=== PATIENT | female | born 1990 | race African-American/Black ===

== ENCOUNTER 2024-03-24 18:37 | Emergency (ER) | payer MEDICAID, OTHER ==
[~2024-03-24] VITALS: Ht 162.6 cm; Wt 136.3 kg
[2024-03-24 18:37] VITALS: BP 126/69; PULSE 84; RESP 14; O2SAT 99
[2024-03-24] MEDS ORDERED: DexAMETHasone SOD PHOS 10MG/1ML VIAL INJ IM ONE (22:15)
[2024-03-24] MEDS ORDERED: FAMOTIDINE 20 MG TAB PO ONE (22:15)
== END 2024-03-24 21:08 | disposition left against medical advice (07) ==
LOC: EDBD 18:37 → ER 18:41
DX: T78.40XA Allergy, unspecified, initial encounter (principal); Z53.21 Procedure and treatment not carried out due to patient leaving prior to being seen by health care provider; X58.XXXA Exposure to other specified factors, initial encounter